=== PATIENT | female | born 1960 | race Caucasian/White ===

== ENCOUNTER 2019-10-23 09:25 | Outpatient (CLI) | payer OTHER ==
[~2019-10-23 09:25] MED LIST: BUSPIRONE HCL15 MG; DIOVAN40 MG PO; HUMIRA40 MG/0.1; INTESTINEX680 MG PO; PREDNISOLONE5 MG PO; TRAMADOL HCL50 MG; VASOTEC10 MG; [UNRECOGNIZED DRUG - OTHER] PO
== END 2019-10-23 10:11 | disposition home or self-care (01) ==
LOC: NUCLEAR 09:25
DX: R55 Syncope and collapse (principal)

== ENCOUNTER 2019-10-23 11:35 | Outpatient (CLI) | payer OTHER | END 2019-10-23 11:46 | disposition home or self-care (01) | LOC: TOM 11:35 | DX: R55 Syncope and collapse (principal) ==

== ENCOUNTER 2020-03-24 10:48 | Outpatient (CLI) | payer OTHER | END 2020-03-24 10:59 | disposition home or self-care (01) | LOC: RAD 10:48 | PROVIDERS: ATTEND Internal Medicine Rheumatology | DX: M54.2 Cervicalgia (principal) ==

== ENCOUNTER 2020-05-29 14:10 | Outpatient (CLI) | payer OTHER | END 2020-05-29 14:23 | disposition home or self-care (01) | LOC: MRI 14:10 | PROVIDERS: ATTEND Internal Medicine Rheumatology | DX: S13.1 Subluxation and dislocation of cervical vertebrae (principal) | CPT/HCPCS: 72141 ==